=== PATIENT | female | born 2000 | race American Indian/Alaskan Native ===

== ENCOUNTER 2018-08-29 02:23 | Emergency (ER) | payer SELFPAY ==
[2018-08-29] MEDS ORDERED: D50W (25GM) Syringe IV ONE (02:40)
[2018-08-29] MEDS ORDERED: TYLENOL ONE (02:47)
[2018-08-29] MEDS ORDERED: TYLENOL PO ONE (02:47)
[2018-08-29 03:59] VITALS: BP 130/65
--- NOTE | 2018-08-29 04:11 | Emergency Department Report ---
ED ENT HPI - General Chief complaint: Upper Respiratory Infection Stated complaint: SORE THROAT/HEADACHE Time Seen by Provider: 08/29/18 03:32 Source: patient Mode of arrival: Ambulatory Limitations: No Limitations - History of Present Illness Initial comments: 18-year-old obese female to emergency Department complaining of sore throat, body aches, headache and chills off and on for the past 2 days. States noticed some white spots to her tongue, which improved with that. She took some of her mom's Keflex. Mild presyncope whenever she leans all over, but is becoming more painful to swallow and she is developing a mild nonproductive cough. No dyspnea or palpitation.. No abdominal pain, nausea, vomiting. MD complaint: sore throat -: Gradual, Sudden Location: throat Severity: moderate Quality: dull Consistency: constant Improves with: none Worsens with: eating Associated Symptoms: pain with swallowing, sore throat. denies: cough, gum swelling, tinnitus, discharge from ear - Related Data Previous Rx's Medication Instructions Recorded Last Taken Type Amoxicillin/Potassium Clav 1 each PO BID #20 tablet 08/29/18 Unknown Rx [Augmentin 875-125 Tablet] Lidocaine Viscous 2% 5 ml MM Q3H PRN #120 udc 08/29/18 Unknown Rx Allergies Allergy/AdvReac Type Severity Reaction Status Date / Time No Known Allergies Allergy Verified 08/29/18 02:43 ED Dental HPI - General Chief complaint: Upper Respiratory Infection Stated complaint: SORE THROAT/HEADACHE Time Seen by Provider: 08/29/18 03:32 Source: patient Mode of arrival: Ambulatory Limitations: No Limitations - Related Data Previous Rx's Medication Instructions Recorded Last Taken Type Amoxicillin/Potassium Clav 1 each PO BID #20 tablet 08/29/18 Unknown Rx [Augmentin 875-125 Tablet] Lidocaine Viscous 2% 5 ml MM Q3H PRN #120 udc 08/29/18 Unknown Rx Allergies Allergy/AdvReac Type Severity Reaction Status Date / Time No Known Allergies Allergy Verified 08/29/18 02:43 ED Review of Systems ROS: Stated complaint: SORE THROAT/HEADACHE Other details as noted in HPI Constitutional: denies: chills, fever Eyes: denies: eye pain, eye discharge, vision change ENT: denies: ear pain, throat pain Respiratory: denies: cough, shortness of breath, wheezing Cardiovascular: denies: chest pain, palpitations Endocrine: no symptoms reported. denies: excessive sweating, flushing, increased thirst, increased urine Gastrointestinal: denies: abdominal pain, nausea, diarrhea Genitourinary: denies: urgency, dysuria, discharge Musculoskeletal: myalgia. denies: back pain, joint swelling, arthralgia Skin: denies: rash, lesions Neurological: denies: headache, weakness, paresthesias Psychiatric: denies: anxiety, depression Hematological/Lymphatic: denies: easy bleeding, easy bruising ED Past Medical Hx - Past Medical History Previous Medical History?: Yes Hx Asthma: Yes - Surgical History Past Surgical History?: No - Social History Smoking Status: Never Smoker Substance Use Type: None - Medications Home Medications: Home Medications Medication Instructions Recorded Confirmed Last Taken Type Amoxicillin/Potassium Clav 1 each PO BID #20 tablet 08/29/18 Unknown Rx [Augmentin 875-125 Tablet] Lidocaine Viscous 2% 5 ml MM Q3H PRN #120 udc 08/29/18 Unknown Rx ED Physical Exam - General Limitations: No Limitations General appearance: alert, in no apparent distress - Head Head exam: Present: atraumatic, normocephalic - Eye Eye exam: Present: normal appearance, PERRL Pupils: Present: normal accommodation - ENT ENT exam: Present: normal exam, mucous membranes moist, TM's normal bilaterally. Absent: normal orophraynx (pharynx is erythematous with mild edema with right side, uvula midline. Airway patent. No drooling.) - Neck Neck exam: Present: normal inspection, full ROM - Respiratory Respiratory exam: Present: normal lung sounds bilaterally. Absent: respiratory distress - Cardiovascular Cardiovascular Exam: Present: regular rate, normal rhythm. Absent: systolic murmur, diastolic murmur, rubs, gallop - GI/Abdominal GI/Abdominal exam: Present: soft, normal bowel sounds - Extremities Exam Extremities exam: Present: normal inspection - Back Exam Back exam: Present: normal inspection - Neurological Exam Neurological exam: Present: alert, oriented X3 - Psychiatric Psychiatric exam: Present: normal affect, normal mood - Skin Skin exam: Present: warm, dry, intact, normal color. Absent: rash ED Course Vital Signs 08/29/18 08/29/18 02:37 03:58 Temperature 100.6 F H 99.1 F Pulse Rate 123 H 97 H Respiratory 18 20 Rate Blood Pressure 144/89 Blood Pressure 130/65 [Right] O2 Sat by Pulse 99 100 Oximetry Critical care attestation.: If time is entered above; I have spent that time in minutes in the direct care of this critically ill patient, excluding procedure time. ED Disposition Clinical Impression: Exudative pharyngitis Disposition: - TO HOME OR SELFCARE Is pt being admited?: No Does the pt Need Aspirin: No Condition: Stable Instructions: Pharyngitis (ED), Strep Throat (ED) Referrals: [facility] [Provider Group] - 3-5 Days
== END 2018-08-29 04:40 | disposition home or self-care (01) ==
LOC: ED 02:23
DX: J02.9 Acute pharyngitis, unspecified (principal); J45.909 Unspecified asthma, uncomplicated
CPT/HCPCS: 99282